=== PATIENT | male | born 1990 | race Caucasian/White ===

== ENCOUNTER 2020-01-09 05:29 | Emergency (ER) | payer MEDICAID ==
[~2020-01-09] VITALS: Ht 188 cm; Wt 112.9 kg
[2020-01-09 05:35] VITALS: BP 163/101
--- NOTE | 2020-01-09 05:40 | NUR ---
PT AMBULATED TO ER BED 11
[2020-01-09] MEDS ORDERED: DICYCLOMINE HCL LIQUID 20 MG, ALUMINUM HYD/MAG/SIMETHICONE 30 ML, LIDOCAINE VISCOUS 2% ... PO ONE ×3 (05:45)
--- NOTE | 2020-01-09 05:55 | NUR ---
29 YO M BIB SELF FOR C/C OF 6/10 MID ABDOMINAL PAIN X1 DAY. PT STATES HE HAS A LONG HISTORY OF HIVES AND SKIN ITCHINESS THAT HE HAS TREATED WITH ZYRTEC FOR 10 YEARS. PT STATES HE RECENTLY STOPPED TAKING ZYRTEC 20 DAYS AGO AND THE ITCHINESS HAS RETURNED. PT STATES HE READ ONLINE THAT THIS CAN BE DUE TO A "BILE DUCT BLOCKAGE" AND CAME TO ER TO MAKE SURE ITS NOT THAT. PT DENIES TAKING ANY OTC MEDICATIONS FOR THE PAIN. LBM WAS YESTERDAY SOFT AND FORMED. BOWEL SOUNDS NORMOACTIVE THROUGHOUT. DENIES N/V/D, FEVER, COUGH, SOB. BED LOCKED AND IN LOWEST POSITION. SIDE RAILS X1. NKA MED HX: ASTHMA NO RX
--- NOTE | 2020-01-09 06:10 | NUR ---
PT ASSESSED AND EVALUATED BY VELMA. NO NURSING CARE PROVIDED TO PT.
--- NOTE | 2020-01-09 06:12 | NUR ---
PT REFUSED GI COCKTAIL. ERMD MADE AWARE.
--- NOTE | 2020-01-09 06:15 | NUR ---
PT LEFT WITHOUT DISCHARGE INSTRUCTIONS AND DID NOT SIGN DISCHARGE PAPERS. ERMD MADE AWARE.
== END 2020-01-09 06:15 | disposition home or self-care (01) ==
LOC: MED 05:29
DX: R51 Headache (principal); R10.13 Epigastric pain
CPT/HCPCS: 99281

== ENCOUNTER 2020-05-02 16:59 | Emergency (ER) | payer MEDICAID ==
[~2020-05-02] VITALS: Ht 190.5 cm; Wt 106.6 kg
[2020-05-02 17:11] VITALS: BP 149/86
--- NOTE | 2020-05-02 17:55 | NUR ---
PT ASSESSED AND AVALUATED BY MITALI HOWELL. NO NURSING INTERVENTIONS NEEDED AT THIS TIME. MITALI HOWELL OFFERED INTERVENTIONS [facility] EKG, CXR, ETC BUT REFUSED ALL CARE.
--- NOTE | 2020-05-02 17:59 | NUR ---
PA HOWELL EVALUATING PT AT BEDSIDE.
[2020-05-02 18:08] VITALS: BP 149/86
== END 2020-05-02 18:08 | disposition home or self-care (01) ==
LOC: MED 16:59
DX: R03.0 Elevated blood-pressure reading, without diagnosis of hypertension (principal); J45.909 Unspecified asthma, uncomplicated
CPT/HCPCS: 99283

== ENCOUNTER 2020-11-02 14:17 | Emergency (ER) | payer MEDICAID ==
[~2020-11-02] VITALS: Ht 190.5 cm; Wt 108.9 kg
[2020-11-02 14:29] VITALS: BP 138/89
--- NOTE | 2020-11-02 14:30 | NUR ---
PT COMPLAINS OF LOWER BACK PAIN X MONTHS. PT STATES THAT HE STANDS UP ALL DAY DURING JOB AND HAS BEEN LOWER BACK PAIN SINCE 2015. PT WITH DIFFICULTY WITH AMBULATION, USING CANE AT THIS TIME. PT DENIES TRAUMA. PT AOX4, BREATHING EVEN AND UNLABORED, SKIN WARM AND DRY. BED IN LOWEST POSITION, LOCKED, SEMI FOWLERS POSITION, BED RAIL UPX1. PMH - ASTHMA ALLERGIES - NKA
[2020-11-02] MEDS ORDERED: KETOROLAC 60 MG/2 ML VIAL IM ONE (14:55)
[2020-11-02] MEDS ORDERED: IBUPROFEN 800 MG TAB PO SCH (15:15)
[2020-11-02] MEDS ORDERED: METH4TAB1 PO (15:20)
[2020-11-02] MEDS ORDERED: METH-1681 PO (15:20)
[2020-11-02] MEDS ORDERED: IBUP-2217 PO (15:20)
[2020-11-02] MEDS ORDERED: LID5T TP (15:21)
[2020-11-02 15:50] VITALS: BP 138/89
--- NOTE | 2020-11-02 15:52 | NUR ---
Patient discharged with v/s stable. Written and verbal after care instructions about low back sprain given and explained. Patient alert, oriented and verbalized understanding of instructions. Ambulatory with steady gait. All questions addressed prior to discharge. ID band removed. Patient advised to follow up with PMD. Rx of ibuprofen, lidoderm, robaxin, medrol given. Patient educated on indication of medication including possible reaction and side effects. Opportunity to ask questions provided and answered.
== END 2020-11-02 15:50 | disposition home or self-care (01) ==
LOC: MED 14:17
DX: S39.012A Strain of muscle, fascia and tendon of lower back, initial encounter (principal); J45.909 Unspecified asthma, uncomplicated; X58.XXXA Exposure to other specified factors, initial encounter; Y93.89 Activity, other specified; Y92.89 Other specified places as the place of occurrence of the external cause; Y99.8 Other external cause status
CPT/HCPCS: 81002; 99283; J1885

== ENCOUNTER 2021-11-19 02:31 | Emergency (ER) | payer MEDICAID ==
[~2021-11-19] VITALS: Ht 190.5 cm; Wt 107.6 kg
[~2021-11-19 02:31] MED LIST: IBUP-2217 PO; LID5T TP; METH-1681 PO; METH4TAB1 PO
[2021-11-19 02:38] VITALS: BP 97/69
--- NOTE | 2021-11-19 02:44 | NUR ---
PT TAKEN TO BED 05.
[2021-11-19] MEDS ORDERED: ALBUTEROL SULFATE/IPRATROPIU 3 ML SOL IH ONE (02:45)
[2021-11-19] MEDS ORDERED: predniSONE 20 MG TAB PO ONE (02:45)
--- NOTE | 2021-11-19 03:15 | NUR ---
pt refused x-ray
--- NOTE | 2021-11-19 03:15 | NUR ---
PT had asthma exacerberation during night. pt states it worsens at night. this has been x2 days / pt denies cough. pt had fever yesterday. pt states sob AAOX4 WITH EVEN AND STEADY GAIT; LUNGS CLEAR BL; HR EVEN AND REGULAR; VSS; PATIENT POSITIONED FOR COMFORT; HOB ELEVATED; BEDRAILS UP X2; BED DOWN. ER MD MADE AWARE OF PT STATUS. rx: no rx, just homeopathic meds. pmh: nka allergies:nka
[2021-11-19] MEDS ORDERED: ALBU0.0912 IH (04:21)
[2021-11-19 04:45] VITALS: BP 97/69
--- NOTE | 2021-11-19 05:01 | NUR ---
0445- Patient discharged with v/s stable. Written and verbal after care instructions given and explained. Patient alert, oriented and verbalized understanding of instructions. Ambulatory with steady gait. All questions addressed prior to discharge. ID band removed. Patient advised to follow up with PMD. Rx of albuterol given. Opportunity to ask questions provided and answered.
--- NOTE | 2021-11-19 05:03 | NUR ---
The patient's care was reviewed and supervised by Nena Greene RN.
== END 2021-11-19 04:55 | disposition home or self-care (01) ==
LOC: MED 02:31
DX: J45.901 Unspecified asthma with (acute) exacerbation (principal); Z79.899 Other long term (current) drug therapy; Z79.1 Long term (current) use of non-steroidal anti-inflammatories (NSAID)
CPT/HCPCS: 94640; 99283; J7512

== ENCOUNTER 2022-03-18 14:26 | Emergency (ER) | payer SELFPAY ==
[~2022-03-18] VITALS: Ht 190.5 cm; Wt 102.5 kg
[~2022-03-18 14:26] MED LIST changes: +ALBU0.0912 IH
[2022-03-18 14:38] VITALS: BP 142/77
--- NOTE | 2022-03-18 15:00 | NUR ---
C/O 10 LOWER BACK PAIN X 3 MONTHS. DENIES INJURY.
--- NOTE | 2022-03-18 15:10 | NUR ---
Patient being evaluated by DR MEYER at [facility] ROOM.
[2022-03-18] MEDS ORDERED: CYCL-711 PO (15:16)
[2022-03-18] MEDS ORDERED: IBUP-2213 PO (15:16)
[2022-03-18 15:23] VITALS: BP 142/77
--- NOTE | 2022-03-18 15:23 | NUR ---
Patient discharged with v/s stable. Written and verbal after care instructions given and explained. Patient alert, oriented and verbalized understanding of instructions. Ambulatory with steady gait. All questions addressed prior to discharge. ID band removed. Patient advised to follow up with PMD. Rx of FLEXERIL & IBUPROFEN given. Patient educated on indication of medication including possible reaction and side effects. Opportunity to ask questions provided and answered.
== END 2022-03-18 15:23 | disposition home or self-care (01) ==
LOC: MED 14:26
DX: S39.012A Strain of muscle, fascia and tendon of lower back, initial encounter (principal); J45.909 Unspecified asthma, uncomplicated; Z79.899 Other long term (current) drug therapy; X58.XXXA Exposure to other specified factors, initial encounter; Y93.89 Activity, other specified; Y92.89 Other specified places as the place of occurrence of the external cause; Y99.8 Other external cause status
CPT/HCPCS: 99283